=== PATIENT | female | born 1990 | race Caucasian/White ===

== ENCOUNTER 2018-01-16 13:51 | Emergency (ER) | payer OTHER ==
[2018-01-16 13:54] VITALS: BP 132/66; PULSE 67; RESP 16; TEMP 97.7; O2SAT 100
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
== END 2018-01-16 14:35 | disposition home or self-care (01) ==
LOC: NEPD 13:51
DX: S40.811A Abrasion of right upper arm, initial encounter (principal); W55.89XA Other contact with other mammals, initial encounter; Y93.K9 Activity, other involving animal care; Y92.410 Unspecified street and highway as the place of occurrence of the external cause
CPT/HCPCS: 99282